=== PATIENT | female | born 1965 | race American Indian/Alaskan Native ===

== ENCOUNTER 2022-05-13 10:15 | Emergency (ER) | payer MEDICAID ==
[~2022-05-13] VITALS: Ht 167.6 cm; Wt 85.0 kg
[~2022-05-13 10:15] MED LIST: ACET160O2 PO; DOCU100C40 PO; FAMO20TA8 PO; HEPA500017 SQ; HYDR-4353 PO; IPRA3AMP9 NEB; NO HOME MEDS; NYST15CR36 TP; SENN-166 PO; WOOL454C TP
[2022-05-13 11:29] LABS: BASOPHILS # (AUTO) 0.1 X10'3 (0-0.2); HEMOGLOBIN 8.9 g/dl (12.0-16.0); MONOCYTES # (AUTO) 0.8 X10'3 (0-0.9)
[2022-05-13 11:31] LABS: BASOPHILS % (AUTO) 0.7 % (0-1); EOSINOPHILS % (AUTO) 0.1 % (0-6); HEMATOCRIT 28.9 % (35.0-45.0); LYMPHOCYTES # (AUTO) 1.2 X10'3 (1.1-4.8); LYMPHOCYTES % (AUTO) 9.3 % (21-51); MEAN CORPUSCULAR HEMOGLOBIN 20.2 PG (27.0-31.0); MEAN CORPUSCULAR HGB CONC 30.9 g/dL (33.0-36.5); MEAN CORPUSCULAR VOLUME 65.3 FL (78-98); MEAN PLATELET VOLUME 6.9 FL (7.4-10.4); MONOCYTES % (AUTO) 5.7 % (2-12); NEUTROPHILS # (AUTO) 11.2 X10'3 (1.8-7.7); NEUTROPHILS % (AUTO) 84.2 % (42-75); PLATELET COUNT 644 X10'3 (140-440); RED BLOOD COUNT 4.42 X10'6 (4.20-5.60); RED CELL DISTRIBUTION WIDTH 18.7 % (11.5-14.5); WHITE BLOOD COUNT 13.4 X10'3 (4.5-11.0)
[2022-05-13] MEDS ORDERED: normal saline 1000ML IV soln IVB ONE (11:50)
[2022-05-13] MEDS ORDERED: IOHEXOL 12MG/ML oral solution 500 ML BOTTLE PO ONE (11:50)
[2022-05-13] MEDS ORDERED: ondansetron/PF 4mg/2ml inj IV ONE (11:50)
[2022-05-13 11:52] LABS: CLARITY,URINE TURBID (Clear); COLOR,URINE RED (Yellow); GLUCOSE, URINE 100 mg/dl (Neg); KETONES,URINE TRACE mg/dl (Neg); LEUKOCYTE ESTERASE ,URINE MODERATE (Neg); NITRITES, URINE POSITIVE (Neg); OCCULT BLOOD,URINE LARGE (Neg); PROTEIN,URINE >=300 mg/dl (Neg)
[2022-05-13 11:53] LABS: ANISOCYTOSIS 2+; ELLIPTOCYTES FEW; MICROCYTOSIS 2+; PLATELET ESTIMATE INCREASED
[2022-05-13 11:54] LABS: UA COLLECTION TYPE NON-SPECIFIED
[2022-05-13 11:55] LABS: BACTERIA,URINE 2+ /HPF (Neg); MUCUS STRANDS FEW /LPF (Neg); RBC,URINE TNTC /HPF (0-2); SQUAMOUS EPITHELIAL CELL,UR NONE SEEN /LPF (FEW); WBC,URINE TNTC /HPF (0-4)
[2022-05-13 11:56] LABS: AMORPHOUS PHOSPHATES 1+
[2022-05-13 11:56] LABS: ALANINE AMINOTRANSFERASE 17 U/L (12-78); ALBUMIN 3.2 G/DL (3.4-5.0); ALBUMIN/GLOBULIN RATIO 0.6 (1.1-1.5); ALKALINE PHOSPHATASE 96 IU/L (46-116); ANION GAP 13 (8-16); ASPARTATE AMINO TRANSFERASE 23 U/L (10-37); BILIRUBIN,TOTAL 0.3 MG/DL (0.1-1.0); BLOOD UREA NITROGEN 26 MG/DL (7-18); BUN/CREATININE RATIO 13.1 (6.6-38.0); CHLORIDE 95 MMOL/L (99-107); CREATININE 1.99 MG/DL (0.40-0.90); GLUCOSE 210 MG/DL (70-104); LIPASE 73 U/L (73-393); POTASSIUM 3.3 MMOL/L (3.5-5.1); SODIUM 136 MMOL/L (135-145); TOTAL CARBON DIOXIDE 28.2 MMOL/L (24-32); TOTAL PROTEIN 8.4 G/DL (6.4-8.2); eGFR 26 ML/MIN
[2022-05-13 12:00] LABS: URINE HCG NEGATIVE (NEG)
[2022-05-13] MEDS ORDERED: CefTRIAXone 2gm/D5W 50ml BAG 50 ML IV ONE (12:05)
--- NOTE | 2022-05-13 13:31 | NUR ---
Called CT about pt finishing the oral contrast.
[2022-05-13] MEDS ORDERED: CEPH250T PO (16:25)
[2022-05-13] MEDS ORDERED: ONDA4TAB12 PO (16:25)
[2022-05-13 16:51] VITALS: BP 124/77
== END 2022-05-13 16:54 | disposition home or self-care (01) ==
LOC: ER 10:16
DX: N39.0 Urinary tract infection, site not specified (principal); R11.2 Nausea with vomiting, unspecified; K43.5 Parastomal hernia without obstruction or gangrene; R10.84 Generalized abdominal pain; Z79.2 Long term (current) use of antibiotics; Z79.899 Other long term (current) drug therapy
CPT/HCPCS: 36415; 74176; 80053; 81001; 81025; 82948; 83690; 85008; 85025; 87088; 93005; 96365; 96366; 96375; 99285; J0696; J2405; J7030

== ENCOUNTER 2022-06-04 05:53 | Inpatient (IN) | payer MEDICAID ==
[2022-05-29 12:27] LABS: BASOPHILS # (AUTO) 0.1 X10'3 (0-0.2); BASOPHILS % (AUTO) 1.1 % (0-1); EOSINOPHILS # (AUTO) 0.1 X10'3 (0-0.9); EOSINOPHILS % (AUTO) 0.9 % (0-6); LYMPHOCYTES # (AUTO) 1.3 X10'3 (1.1-4.8); MEAN CORPUSCULAR HEMOGLOBIN 20.3 PG (27.0-31.0); MEAN CORPUSCULAR HGB CONC 30.4 g/dL (33.0-36.5); MEAN CORPUSCULAR VOLUME 66.7 FL (78-98); MEAN PLATELET VOLUME 7.2 FL (7.4-10.4); MONOCYTES # (AUTO) 0.5 X10'3 (0-0.9); MONOCYTES % (AUTO) 8.5 % (2-12); NEUTROPHILS # (AUTO) 4.4 X10'3 (1.8-7.7); NEUTROPHILS % (AUTO) 68.5 % (42-75); PRE OP HEMATOCRIT 24.7 % (35.0-45.0); RED CELL DISTRIBUTION WIDTH 19.5 % (11.5-14.5)
[2022-05-29 12:29] LABS: PRE OP HEMOGLOBIN 7.5 g/dL (12.0-16.0)
[2022-05-29 12:30] LABS: PRE OP PLATELET COUNT 683 X10'3 (140-440)
[2022-05-29 12:39] LABS: PRE OP PROTIME 10.3 SECONDS (9.0-12.0)
[2022-05-29 12:44] LABS: PLATELET ESTIMATE INCREASED
[2022-05-29 12:45] LABS: ANISOCYTOSIS 2+; ELLIPTOCYTES FEW; HYPOCHROMASIA 1+; MICROCYTOSIS 2+; STOMATOCYTES 1+
[2022-05-29 12:50] LABS: ALBUMIN 3.4 G/DL (3.4-5.0); ALBUMIN/GLOBULIN RATIO 0.8 (1.1-1.5); ALKALINE PHOSPHATASE 78 IU/L (46-116); BLOOD UREA NITROGEN 32 MG/DL (7-18); BUN/CREATININE RATIO 12.7 (6.6-38.0); CALCIUM 10.2 MG/DL (8.5-10.1); CHLORIDE 88 MMOL/L (99-107); CREATININE 2.52 MG/DL (0.40-0.90); PRE OP ALT 29 U/L (30-65); PRE OP ANION GAP 9 (8-16); PRE OP AST 28 U/L (10-37); PRE OP BILIRUB, TOTAL 0.4 MG/DL (0.0-1.0); PRE OP GLUCOSE 155 MG/DL (70-104); PRE OP SODIUM 136 MMOL/L (135-145); TOTAL CARBON DIOXIDE 39.4 MMOL/L (24-32); TOTAL PROTEIN 7.9 G/DL (6.4-8.2); eGFR 20 ML/MIN
[2022-05-29 12:52] LABS: HEMOGLOBIN A1C 6.6 % (4.5-6.2)
[2022-05-29 12:56] LABS: PRE OP POTASSIUM 2.9 MMOL/L (3.4-5.1)
[2022-06-04] VITALS (35 sets, daily range): BP systolic 113–168; BP diastolic 6–78
[~2022-06-04] VITALS: Ht 165.1 cm; Wt 85.0 kg
[~2022-06-04 05:53] MED LIST changes: -ACET160O2 PO; -DOCU100C40 PO; -FAMO20TA8 PO; -HEPA500017 SQ; +HYDR-3964 PO; -HYDR-4353 PO; -IPRA3AMP9 NEB; +LOSA25TA41 PO; +METF-1203 PO; -NO HOME MEDS; -NYST15CR36 TP; +OMEP40CA21 PO; +ROSU10TA28 PO; -SENN-166 PO; -WOOL454C TP; +ceFOXitin 2GM-NS 100mL ADDvant 100 ML IV ONE; +famotidine 20mg tablet PO ONE
[2022-06-04] MEDS: normal saline 500ml IV soln 500 ML IV SCH (06:19)
[2022-06-04 06:40] LABS: ISTAT CREATININE 1.3 mg/dL (0.6-1.1); ISTAT HGB 7.8 g/dl (12.0-16.0); ISTAT IONIZED CALCIUM 1.09 mmol/L (1.03-1.32); ISTAT K 3.4 mmol/L (3.5-5.1); POC BUN/CREATININE RATIO 10.8 (6.6-38.0)
[2022-06-04] MEDS ORDERED: midazolam 1 mg/ML 2ml injection ONE (07:55)
[2022-06-04] MEDS ORDERED: rocuronium 10mg/ml inj IV ONE ×2 (07:57→08:24)
[2022-06-04] MEDS ORDERED: LIDOcaine 2% (20mg/ml) 5ml vial ONE (07:57)
[2022-06-04] MEDS ORDERED: fentaNYL /PF 50mcg/ml 5ml ampule ONE (07:57)
[2022-06-04] MEDS ORDERED: propofol inj 20 ML IV ONE (07:57)
[2022-06-04] MEDS ORDERED: ondansetron/PF 4mg/2ml inj ONE (08:24)
[2022-06-04] MEDS ORDERED: sevoflurane 250ml liquid IH ONE (08:24)
[2022-06-04] MEDS ORDERED: ringers solution, lacted 1,000 ML IV SCH (09:15)
[2022-06-04] MEDS ORDERED: fentaNYL/PF 50MCG/1 ML 2ML syringe IV PRN ×2 (09:15)
[2022-06-04] MEDS ORDERED: ondansetron/PF 4mg/2ml inj IV PRN ×2 (09:15→11:45)
[2022-06-04] MEDS ORDERED: HYDROmorphone/PF 0.2 MG/ML SYRINGE IV PRN ×2 (09:15)
[2022-06-04] MEDS ORDERED: dexamethasone sod phosphate 4mg/ml inj. ONE (11:31)
[2022-06-04] MEDS ORDERED: neostigmine methylsulfate 1 MG/ML 10ml vial ONE (11:31)
[2022-06-04] MEDS ORDERED: acetaminophen 1,000mg/100ml IV 100 ML IV ONE (11:31)
[2022-06-04] MEDS ORDERED: glycopyrrolate 0.2mg/ml inj ONE (11:31)
[2022-06-04] MEDS ORDERED: meperidine/PF 25mg/ml syringe ONE (11:36)
[2022-06-04] MEDS ORDERED: sugammadex 200mg/2ml injection IV ONE (11:39)
[2022-06-04] MEDS ORDERED: naloxone 0.4 mg/ml inj IV PRN (11:45)
--- NOTE | 2022-06-04 11:46 | NUR ---
Received from OR via BED, accompanied by Anesthesiologist DR WHALEY and report given by Anesthesiologist AND US CUSTOMS AND BORDER OFFICER. PT DROWSY, BUT AWAKENS STARTLED AND FLAILS ARMS AND LEGS THEN CLOSES EYES AND RESTS. ISTAT DRAWN AND REVIEWED BY DR WHALEY. ABDOMINAL BINDER COVERING INCISIONS W/GAUZE DRSG'S COVERING CDI, BELINDA TO BULB SUCTION W/SANGUINOUS DRAINAGE IN BULB, BENNETT CATHETER TO GRAVITY DRAINAGE W/HEMATURIA S/S IN DRAINAGE BAG. DR VU IN, RT HERE FOR CLAIRE, REYMUNDO. Addendum: 06/04/22 at 1402 by Jessica Ferraro RN Amended: Links added.
[2022-06-04 12:18] LABS: ABG BASE EXCESS 0.1 mmol/L (-2.0-2.0); ABG OXYGEN SATURATION 92.7 % (94-97); ABG PCO2 (T) 41.8 mmHg (32.0-45.0); ABG PO2 (T) 71.8 mmHg (75.0-100.0); ALLEN'S TEST POSITIVE; FCOHb 0.6 % (0.0-3.9); FMetHb 0.3 % (0.0-1.5); FO2Hb 91.9 % (94-97); TOTAL HEMOGLOBIN 7.5 G/dl (12.0-16.0)
[2022-06-04] MEDS ORDERED: dextrose 50%-water 50ml dispensing syringe IV PRN ×2 (12:50)
[2022-06-04] MEDS ORDERED: insulin Lispro (HumaLOG) vial - multi-dose SQ SCH (12:50)
[2022-06-04] MEDS ORDERED: glucagon, human recombinant 1mg kit SUBCUT PRN (12:50)
[2022-06-04] MEDS ORDERED: DEXTROSE 15 GM of carb/4 tabs (each vial/BOTTLE has 4 tablets) PO PRN ×2 (12:50)
[2022-06-04] MEDS ORDERED: MESSAGE TO PHARMACY PO ONE (12:50)
[2022-06-04] MEDS ORDERED: HYDROcodone/acetaminophen 5mg/325mg tablet PO PRN (13:15)
--- NOTE | 2022-06-04 15:45 | NUR ---
patient c/o pain dilaudid given with good effect. Dressing to abdomen CDI, abdominal binder in place.. Post op vitals initiated . patient appears stable .
--- NOTE | 2022-06-04 15:45 | NUR ---
Patient in room [facility]. I have received report from Jessica SANCHES and had the opportunity to ask questions and assume patient care.
--- NOTE | 2022-06-04 15:46 | NUR ---
Report called to receiving nurse. Transferred via BED, 2 BAGS OF Belongings SENT W/PT TO ROOM 4. RECEIVING RN AT BEDSIDE TO RECEIVE PT, BLL, CALL LIGHT GIVEN TO PT, SIDE RAILS UP X 2. PT REMAINS DROWSY BUT APPROPRIATE, COMFORTABLE. Special Issues communicated to receiving nurse. YES. Addendum: 06/04/22 at 1554 by Jessica Ferraro RN Amended: Links added.
[2022-06-04] MEDS: ceFOXitin inj 1,000 MG in normal saline 100ml IV soln 100 ML IV SCH ×2 (17:21→23:55)
[2022-06-04] MEDS: HYDROmorphone inj. 0.5 MG/0.5 ML DISP.SYRIN IV PRN (17:26)
--- NOTE | 2022-06-04 18:25 | NUR ---
Problems reprioritized. Patient report given, questions answered & plan of care reviewed with Chance SANCHES.
[2022-06-04] MEDS: ringers solution, lacted 1,000 ML IV SCH (20:00)
[2022-06-04] MEDS: insulin glargine (Lantus) pen - multi-dose SQ SCH (21:00)
[2022-06-04] MEDS: atorvastatin 20mg tablet PO SCH (21:11)
[2022-06-04] MEDS: gabapentin 300mg capsule PO SCH (21:11)
[2022-06-05] MEDS: HYDROcodone/acetaminophen 5mg/325mg tablet PO PRN ×2 (00:30→17:08)
[2022-06-05 02:00] VITALS: BP 128/69
[2022-06-05 06:00] VITALS: BP 115/64
[2022-06-05] MEDS: ringers solution, lacted 1,000 ML IV SCH ×2 (06:17→17:05)
--- NOTE | 2022-06-05 06:20 | NUR ---
Problems reprioritized. Patient report given, questions answered & plan of care reviewed with BECKI. Addendum: 06/05/22 at 0621 by Delfino Bonilla RN Amended: Links added.
[2022-06-05] MEDS: normal saline 500ml IV soln 500 ML IV SCH (06:30)
--- NOTE | 2022-06-05 06:36 | NUR ---
Patient in room [facility] 343. I have received report from Viji oliver and had the opportunity to ask questions and assume patient care.
[2022-06-05] MEDS: pantoprazole 40mg Tablet.DR PO SCH (07:39)
[2022-06-05] MEDS: gabapentin 300mg capsule PO SCH ×2 (07:39→20:06)
--- NOTE | 2022-06-05 09:05 | NUR ---
DM Consult: Pt hx T2DM A1C 6.6% per EMR; A1C appropriate at this time. Addendum: 06/05/22 at [address] Amended: Links added.
[2022-06-05 10:00] VITALS: BP 133/76
--- NOTE | 2022-06-05 12:40 | NUR ---
PATIENT UP AMBULATING X300 FT, PASSING GAS.WILL CONTINUE TO MONITOR
[2022-06-05 18:00] VITALS: BP 140/69
[2022-06-05] MEDS: atorvastatin 20mg tablet PO SCH (20:07)
[2022-06-05] MEDS: insulin glargine (Lantus) pen - multi-dose SQ SCH (21:00)
[2022-06-05 22:00] VITALS: BP 113/60
[2022-06-06] VITALS (13 sets, daily range): BP systolic 108–149; BP diastolic 49–70
[2022-06-06] MEDS: HYDROcodone/acetaminophen 5mg/325mg tablet PO PRN ×3 (00:24→19:34)
[2022-06-06] MEDS: ringers solution, lacted 1,000 ML IV SCH ×2 (02:47→11:45)
--- NOTE | 2022-06-06 05:05 | NUR ---
ambulated x1 300ft, barajas removed good output 1900mls. BELINDA 60mls patient appears comfortable
--- NOTE | 2022-06-06 06:33 | NUR ---
Patient in room [facility]. I have received report from Wendy SANCHES and had the opportunity to ask questions and assume patient care.
--- NOTE | 2022-06-06 06:33 | NUR ---
Problems reprioritized. Patient report given, questions answered & plan of care reviewed with tash guzman.
[2022-06-06 06:37] LABS: BASOPHILS % (AUTO) 0.4 % (0-1); EOSINOPHILS % (AUTO) 0.4 % (0-6); LYMPHOCYTES % (AUTO) 13.2 % (21-51); MEAN CORPUSCULAR HGB CONC 30.7 g/dL (33.0-36.5); MEAN CORPUSCULAR VOLUME 68.6 FL (78-98); MONOCYTES # (AUTO) 0.6 X10'3 (0-0.9); MONOCYTES % (AUTO) 7.8 % (2-12); NEUTROPHILS # (AUTO) 6.2 X10'3 (1.8-7.7); NEUTROPHILS % (AUTO) 78.2 % (42-75); PLATELET COUNT 503 X10'3 (140-440); RED BLOOD COUNT 2.84 X10'6 (4.20-5.60); RED CELL DISTRIBUTION WIDTH 19.7 % (11.5-14.5); WHITE BLOOD COUNT 7.9 X10'3 (4.5-11.0)
[2022-06-06 06:54] LABS: HEMATOCRIT 19.5 % (35.0-45.0)
--- NOTE | 2022-06-06 07:01 | NUR ---
Lab called critical lab values of HGB 6 Hematocrit of 19.5 MD Rodriguez of notification, new order to repeat labs at 1400 entered.
[2022-06-06] MEDS: gabapentin 300mg capsule PO SCH ×2 (07:29→19:34)
[2022-06-06] MEDS: pantoprazole 40mg Tablet.DR PO SCH (07:29)
[2022-06-06] MEDS: normal saline 500ml IV soln 500 ML IV SCH (07:29)
[2022-06-06 07:33] LABS: ANISOCYTOSIS 2+; PLATELET ESTIMATE INCREASED
[2022-06-06 07:34] LABS: ELLIPTOCYTES FEW; HYPOCHROMASIA 2+; LARGE PLATELETS FEW; MICROCYTOSIS 2+
[2022-06-06 07:35] LABS: POLYCHROMASIA FEW
--- NOTE | 2022-06-06 10:04 | NUR ---
CAPRICE documentation: I have reviewed and agree with all interventions, assessments performed and documented by LINDSEY VASQUES . Addendum: 06/06/22 at 1012 by Marvel Schmid RN CAPRICE documentation: I have reviewed and agree with all interventions, assessments performed and documented by LINDSEY VASQUES. See assessment for changes in what i did not agree with.
[2022-06-06 14:28] LABS: BASOPHILS % (AUTO) 0.5 % (0-1); EOSINOPHILS # (AUTO) 0.1 X10'3 (0-0.9); LYMPHOCYTES # (AUTO) 0.9 X10'3 (1.1-4.8); MEAN CORPUSCULAR HEMOGLOBIN 20.3 PG (27.0-31.0); MEAN CORPUSCULAR HGB CONC 29.7 g/dL (33.0-36.5); MEAN CORPUSCULAR VOLUME 68.6 FL (78-98); MEAN PLATELET VOLUME 6.7 FL (7.4-10.4); MONOCYTES # (AUTO) 0.5 X10'3 (0-0.9); MONOCYTES % (AUTO) 7.1 % (2-12); NEUTROPHILS % (AUTO) 79.4 % (42-75); PLATELET COUNT 483 X10'3 (140-440); RED BLOOD COUNT 2.84 X10'6 (4.20-5.60); RED CELL DISTRIBUTION WIDTH 19.2 % (11.5-14.5); WHITE BLOOD COUNT 7.6 X10'3 (4.5-11.0)
[2022-06-06 14:33] LABS: HEMATOCRIT 19.5 % (35.0-45.0); HEMOGLOBIN 5.8 g/dl (12.0-16.0)
--- NOTE | 2022-06-06 15:06 | NUR ---
MD notified of critical HGB of 5.8 and Hematocrit of 19.5, will give 2 units of blood per MD
--- NOTE | 2022-06-06 18:26 | NUR ---
Problems reprioritized. Patient report given, questions answered & plan of care reviewed with Claudia SANCHES.
[2022-06-06] MEDS: atorvastatin 20mg tablet PO SCH (19:34)
[2022-06-06] MEDS: insulin glargine (Lantus) pen - multi-dose SQ SCH (21:00)
[2022-06-07 02:00] VITALS: BP 113/41
[2022-06-07] MEDS: ringers solution, lacted 1,000 ML IV SCH ×3 (02:36→13:43)
--- NOTE | 2022-06-07 05:44 | NUR ---
pt has walked the halls twice tonight. tolerating well. no dizziness. no fever. am labs pending
[2022-06-07 06:00] VITALS: BP 123/60
[2022-06-07 06:00] LABS: BASOPHILS % (AUTO) 0.5 % (0-1); EOSINOPHILS # (AUTO) 0.1 X10'3 (0-0.9); EOSINOPHILS % (AUTO) 1.9 % (0-6); LYMPHOCYTES # (AUTO) 0.9 X10'3 (1.1-4.8); LYMPHOCYTES % (AUTO) 11.7 % (21-51); MEAN CORPUSCULAR HEMOGLOBIN 22.5 PG (27.0-31.0); MEAN CORPUSCULAR HGB CONC 30.7 g/dL (33.0-36.5); MEAN CORPUSCULAR VOLUME 73.4 FL (78-98); MEAN PLATELET VOLUME 6.8 FL (7.4-10.4); MONOCYTES # (AUTO) 0.5 X10'3 (0-0.9); MONOCYTES % (AUTO) 6.9 % (2-12); PLATELET COUNT 456 X10'3 (140-440); RED BLOOD COUNT 3.54 X10'6 (4.20-5.60); RED CELL DISTRIBUTION WIDTH 21.5 % (11.5-14.5); WHITE BLOOD COUNT 7.6 X10'3 (4.5-11.0)
[2022-06-07 06:18] LABS: ALANINE AMINOTRANSFERASE 16 U/L (12-78); ALBUMIN 1.9 G/DL (3.4-5.0); ALBUMIN/GLOBULIN RATIO 0.5 (1.1-1.5); ALKALINE PHOSPHATASE 87 IU/L (46-116); ANION GAP 7 (8-16); ASPARTATE AMINO TRANSFERASE 19 U/L (10-37); BILIRUBIN,TOTAL 0.3 MG/DL (0.1-1.0); BLOOD UREA NITROGEN 8 MG/DL (7-18); BUN/CREATININE RATIO 8.8 (6.6-38.0); CALCIUM 8.4 MG/DL (8.5-10.1); CHLORIDE 108 MMOL/L (99-107); CREATININE 0.91 MG/DL (0.40-0.90); GLUCOSE 117 MG/DL (70-104); POTASSIUM 3.8 MMOL/L (3.5-5.1); SODIUM 140 MMOL/L (135-145); TOTAL CARBON DIOXIDE 24.9 MMOL/L (24-32); TOTAL PROTEIN 5.7 G/DL (6.4-8.2); eGFR 64 ML/MIN
--- NOTE | 2022-06-07 07:00 | NUR ---
Patient in room [facility]. I have received report from Claudia SANCHES and had the opportunity to ask questions and assume patient care.
[2022-06-07] MEDS: gabapentin 300mg capsule PO SCH ×2 (08:19→19:33)
[2022-06-07] MEDS: pantoprazole 40mg Tablet.DR PO SCH (08:19)
[2022-06-07] MEDS: HYDROcodone/acetaminophen 5mg/325mg tablet PO PRN ×2 (08:20→17:30)
[2022-06-07] MEDS: normal saline 500ml IV soln 500 ML IV SCH (08:30)
[2022-06-07 11:07] VITALS: BP 164/65
[2022-06-07 18:00] VITALS: BP 141/61
--- NOTE | 2022-06-07 18:21 | NUR ---
Problems reprioritized. Patient report given, questions answered & plan of care reviewed with Zayda VASQUES.
--- NOTE | 2022-06-07 18:35 | NUR ---
Patient in room [facility]. I have received report from Cyndie and had the opportunity to ask questions and assume patient care.
[2022-06-07] MEDS: enoxaparin 40mg/0.4ml syringe SUBCUT SCH (19:33)
[2022-06-07] MEDS: atorvastatin 20mg tablet PO SCH (19:33)
[2022-06-07] MEDS: insulin glargine (Lantus) pen - multi-dose SQ SCH (21:00)
[2022-06-07 22:00] VITALS: BP 148/65
[2022-06-07] MEDS: HYDROmorphone inj. 0.5 MG/0.5 ML DISP.SYRIN IV PRN (22:11)
[2022-06-08] MEDS: ringers solution, lacted 1,000 ML IV SCH (00:27)
--- NOTE | 2022-06-08 06:01 | NUR ---
Problems reprioritized. Patient report given, questions answered & plan of care reviewed with Cyndie.
--- NOTE | 2022-06-08 06:47 | NUR ---
Patient in room [facility]. I have received report from Zayda VASQUES and had the opportunity to ask questions and assume patient care.
--- NOTE | 2022-06-08 06:53 | NUR ---
REVIEWED BUSINESS ACCOUNT SPECIALIST ASSESSMENT AND IN AGREEMENT
[2022-06-08 07:10] VITALS: BP 139/69
[2022-06-08] MEDS: pantoprazole 40mg Tablet.DR PO SCH (07:33)
[2022-06-08] MEDS: gabapentin 300mg capsule PO SCH ×2 (07:33→20:01)
[2022-06-08] MEDS: HYDROcodone/acetaminophen 5mg/325mg tablet PO PRN ×2 (07:34→23:36)
[2022-06-08] MEDS: normal saline 500ml IV soln 500 ML IV SCH (10:25)
[2022-06-08 12:07] VITALS: BP 146/68
[2022-06-08 18:00] VITALS: BP 141/64
--- NOTE | 2022-06-08 18:20 | NUR ---
Patient in room [facility]. I have received report from Cyndie and had the opportunity to ask questions and assume patient care.
[2022-06-08] MEDS: enoxaparin 40mg/0.4ml syringe SUBCUT SCH (20:01)
[2022-06-08] MEDS: atorvastatin 20mg tablet PO SCH (20:02)
[2022-06-08] MEDS: insulin glargine (Lantus) pen - multi-dose SQ SCH (21:00)
--- NOTE | 2022-06-08 21:47 | NUR ---
Verified with patient if she had a bm today, she told me no only gas.
[2022-06-08 22:00] VITALS: BP 131/71
--- NOTE | 2022-06-09 02:15 | NUR ---
Reviewed and agree with POUNCER MACHINE assessment
--- NOTE | 2022-06-09 06:07 | NUR ---
Problems reprioritized. Patient report given, questions answered & plan of care reviewed with Charity.
--- NOTE | 2022-06-09 06:45 | NUR ---
Patient in room [facility]. I have received report from Becky SANCHES and had the opportunity to ask questions and assume patient care.
[2022-06-09 07:00] VITALS: BP 126/60
[2022-06-09] MEDS: gabapentin 300mg capsule PO SCH ×2 (08:12→19:28)
[2022-06-09] MEDS: pantoprazole 40mg Tablet.DR PO SCH (08:12)
[2022-06-09 10:00] VITALS: BP 126/70
[2022-06-09] MEDS: normal saline 500ml IV soln 500 ML IV SCH (10:30)
--- NOTE | 2022-06-09 13:29 | NUR ---
Initial: Pt admit s/p OR for colostomy reversal and parastomal hernia repair per EMR. Hx DM A1C 6.6% advanced to carb controlled diet from initial clear liquids PO ~74% avg meals meeting estimated protein needs and partially meeting kcal needs. JAYSHREE recommends Yogi smoothie BIDBD for wound healing and to assist meeting kcals needs; MD notified. LBM 06/09 per EMR. Will monitor for further nutrition intervention needs this admit. Rec: 1. continue carb controlled diet; if PO regresses liberalize to regular 2. Yogi smoothie BIDBD; pending MD verification in EMR 3. routine bowel care 4. weekly wts Addendum: 06/09/22 at [address] Amended: Links added.
[2022-06-09] MEDS: HYDROcodone/acetaminophen 5mg/325mg tablet PO PRN ×2 (14:37→20:09)
[2022-06-09 18:00] VITALS: BP 140/65
--- NOTE | 2022-06-09 18:00 | NUR ---
Problems reprioritized. Patient report given, questions answered & plan of care reviewed with susanne VASQUES.
--- NOTE | 2022-06-09 18:51 | NUR ---
Patient in room [facility]. I have received report from Charity and had the opportunity to ask questions and assume patient care.
[2022-06-09] MEDS: atorvastatin 20mg tablet PO SCH (19:28)
[2022-06-09] MEDS: enoxaparin 40mg/0.4ml syringe SUBCUT SCH (19:28)
--- NOTE | 2022-06-09 19:30 | NUR ---
Dr. Rodriguez rounded on pt. I was instructed to order MOM BID and BELINDA will come out in the AM as well as pt being discharged 06/10
[2022-06-09] MEDS: magnesium hydroxide 30ml (MOM) UD suspension PO SCH (19:42)
[2022-06-09] MEDS: insulin glargine (Lantus) pen - multi-dose SQ SCH (21:00)
[2022-06-09 22:00] VITALS: BP 115/43
[2022-06-10 06:00] VITALS: BP 128/63
--- NOTE | 2022-06-10 06:12 | NUR ---
Problems reprioritized. Patient report given, questions answered & plan of care reviewed with Bre.
--- NOTE | 2022-06-10 06:54 | NUR ---
Patient in room [facility] 343B. I have received report from CAPRICE ABDULLAHI and had the opportunity to ask questions and assume patient care.
[2022-06-10] MEDS: magnesium hydroxide 30ml (MOM) UD suspension PO SCH (08:00)
[2022-06-10] MEDS: gabapentin 300mg capsule PO SCH (09:19)
[2022-06-10] MEDS: pantoprazole 40mg Tablet.DR PO SCH (09:19)
[2022-06-10 10:00] VITALS: BP 110/59
--- NOTE | 2022-06-10 11:19 | NUR ---
assisting RN with pt care, BELINDA drain removed without complications, 60ml of pink tinged fluid in BELINDA drain, applied 4x4 and foam tape
--- NOTE | 2022-06-10 12:00 | NUR ---
PATIENT STABLE AND APPROPRIATE FOR TRANSFER, IV TAKEN OUT, ALL BELONGINGS SENT WITH PATIENT, EDUCATION GIVEN, PATIENT TAKEN TO LOBBY BY WHEELCHAIR TO AN AWAITING CAR WHERE DAUGHTER WILL TAKE PATIENT HOME
[2022-06-11 07:18] LABS: ISTAT CREATININE 1.2 mg/dL (0.6-1.1); ISTAT K 3.8 mmol/L (3.5-5.1)
[2022-06-11 07:19] LABS: ISTAT HGB 7.1 g/dl (12.0-16.0); ISTAT IONIZED CALCIUM 1.07 mmol/L (1.03-1.32); POC BUN/CREATININE RATIO 10.8 (6.6-38.0)
== END 2022-06-10 12:00 | disposition home or self-care (01) | DRG 231 ==
LOC: UNDOADMIN 05:53 → PAS IN 05:53 → SUR 3N 15:43
PROVIDERS: ADMIT Surgery; ATTEND Surgery
PROC: 0DNW0ZZ Release Peritoneum, Open Approach (ICD-10-PCS; 2022-06-04)
PROC: 0WQF0ZZ Repair Abdominal Wall, Open Approach (ICD-10-PCS; 2022-06-04)
PROC: 0DBL0ZZ Excision of Transverse Colon, Open Approach (ICD-10-PCS; principal; 2022-06-04 08:24)
PROC: 30233N1 Transfusion of Nonautologous Red Blood Cells into Peripheral Vein, Percutaneous Approach (ICD-10-PCS; 2022-06-06)
DX: Z43.3 Encounter for attention to colostomy (principal); E11.9 Type 2 diabetes mellitus without complications; K43.5 Parastomal hernia without obstruction or gangrene; K66.0 Peritoneal adhesions (postprocedural) (postinfection); I10 Essential (primary) hypertension
CPT/HCPCS: 36415; 36430; 36600; 71046; 80047; 80053; 82803; 82948; 83036; 85008; 85018; 85025; 85610; 85730; 86870; 86885; 86900; 86901; 86902; 86905; 86920; 86922; 87081; 93005; A4615; A4618; A6402; A6449; A7000; C1758; G0378; J0131; J0694; J1100; J1170; J1650; J1815; J2175; J2250; J2405; J2704; J2710; J3010; J3490; J7030; J7040; J7050; J7120; P9016

== ENCOUNTER 2022-06-26 08:13 | Day surgery (SDC) | payer MEDICAID ==
[~2022-06-26] VITALS: Ht 165.1 cm; Wt 85.7 kg
[~2022-06-26 08:13] MED LIST changes: -ceFOXitin 2GM-NS 100mL ADDvant 100 ML IV ONE; -famotidine 20mg tablet PO ONE
[2022-06-26 08:38] VITALS: BP 122/68
[2022-06-26 08:40] VITALS: BP 122/68
[2022-06-26] MEDS ORDERED: LIDOcaine 1% 30ml preserv. free vial SQ STA (08:53)
[2022-06-26 09:51] VITALS: BP 117/67
[2022-06-26 10:00] VITALS: BP 133/66
== END 2022-06-26 10:12 | disposition home or self-care (01) ==
LOC: SSTAY O 08:13
PROVIDERS: ATTEND Radiology Vascular & Interventional Radiology
DX: K91.872 Postprocedural seroma of a digestive system organ or structure following a digestive system procedure (principal); Z88.6 Allergy status to analgesic agent; Z88.8 Allergy status to other drugs, medicaments and biological substances; Z79.899 Other long term (current) drug therapy
CPT/HCPCS: 10030; 10160; 76942; 87070; 87075; 87102; A6449

== ENCOUNTER 2023-04-26 16:59 | Inpatient (IN) | payer MEDICAID ==
[~2023-04-26] VITALS: Ht 165.1 cm; Wt 73.2 kg
[~2023-04-26 16:59] MED LIST changes: -HYDR-3964 PO; +IRON150C5 PO; -LOSA25TA41 PO; -METF-1203 PO; +SERT-433 PO
[2023-04-26 17:21] LABS: CLARITY,URINE TURBID (Clear); COLOR,URINE BROWN (Yellow)
[2023-04-26 17:30] LABS: UA COLLECTION TYPE CLN CATCH MIDSTREAM
[2023-04-26 17:32] LABS: RBC,URINE TNTC /HPF (0-2); WBC,URINE 20-30 /HPF (0-4)
[2023-04-26 17:33] LABS: BACTERIA,URINE 3+ /HPF (Neg); MUCUS STRANDS FEW /LPF (Neg); SQUAMOUS EPITHELIAL CELL,UR FEW /LPF (FEW); WBC CLUMPS,URINE FEW /HPF (NEGATIVE)
[2023-04-26 17:37] LABS: URINE HCG POSITIVE (NEG)
[2023-04-26 20:18] LABS: BASOPHILS # (AUTO) 0.1 X10'3 (0-0.2); EOSINOPHILS # (AUTO) 0.1 X10'3 (0-0.9); EOSINOPHILS % (AUTO) 1.6 % (0-6); LYMPHOCYTES # (AUTO) 0.9 X10'3 (1.1-4.8); MONOCYTES # (AUTO) 0.6 X10'3 (0-0.9); WHITE BLOOD COUNT 7.2 X10'3 (4.5-11.0)
[2023-04-26 20:19] LABS: BASOPHILS % (AUTO) 1.3 % (0-1); LYMPHOCYTES % (AUTO) 12.5 % (21-51); MEAN CORPUSCULAR HEMOGLOBIN 21.5 PG (27.0-31.0); MEAN CORPUSCULAR VOLUME 71.8 FL (78-98); MEAN PLATELET VOLUME 6.5 FL (7.4-10.4); MONOCYTES % (AUTO) 7.9 % (2-12); NEUTROPHILS # (AUTO) 5.5 X10'3 (1.8-7.7); NEUTROPHILS % (AUTO) 76.7 % (42-75); PLATELET COUNT 622 X10'3 (140-440); RED BLOOD COUNT 2.93 X10'6 (4.20-5.60); RED CELL DISTRIBUTION WIDTH 27.4 % (11.5-14.5)
[2023-04-26 20:28] LABS: HEMOGLOBIN 6.3 g/dl (12.0-16.0)
[2023-04-26] MEDS ORDERED: CefTRIAXone 2gm/D5W 50ml BAG 50 ML IV STA (20:35)
[2023-04-26 20:53] LABS: ALANINE AMINOTRANSFERASE 16 U/L (12-78); ALBUMIN 2.4 G/DL (3.4-5.0); ALBUMIN/GLOBULIN RATIO 0.5 (1.1-1.5); ALKALINE PHOSPHATASE 90 IU/L (46-116); ANION GAP 4 (8-16); ASPARTATE AMINO TRANSFERASE 20 U/L (10-37); BILIRUBIN,TOTAL 0.3 MG/DL (0.1-1.0); BLOOD UREA NITROGEN 19 MG/DL (7-18); BUN/CREATININE RATIO 13.5 (10.0-20.0); CALCIUM 9.1 MG/DL (8.5-10.1); CHLORIDE 106 MMOL/L (99-107); CREATININE 1.41 MG/DL (0.40-0.90); GLUCOSE 104 MG/DL (70-104); POTASSIUM 4.4 MMOL/L (3.5-5.1); SODIUM 134 MMOL/L (135-145); TOTAL CARBON DIOXIDE 23.9 MMOL/L (24-32); TOTAL PROTEIN 7.1 G/DL (6.4-8.2); eCRCL 40 ML/MIN; eGFR 39 ML/MIN
[2023-04-26 21:00] LABS: BETA HCG,QUANTITATIVE < 1.0 mIU/ml
[2023-04-26] MEDS ORDERED: temazepam 15mg capsule PO PRN (21:00)
[2023-04-26 21:04] LABS: LIPASE 21 U/L (16-77)
[2023-04-26] MEDS ORDERED: METF-436 PO (21:21)
[2023-04-26 21:40] LABS: APTT 20 SECONDS (22-32); PROTHROMBIN TIME 10.3 SECONDS (9.0-12.0)
[2023-04-26] MEDS ORDERED: ondansetron/PF 4mg/2ml inj IV PRN (21:50)
[2023-04-26] MEDS ORDERED: potassium Cl 20 mEq SR tablet PO PRN ×2 (21:50)
[2023-04-26] MEDS ORDERED: magnesium Cl slow-release 64mg tablet PO PRN (21:50)
[2023-04-26] MEDS ORDERED: potassium Cl 40MEQ/1/2NS 520ml 520 ML IV PRN (21:50)
[2023-04-26] MEDS ORDERED: magnesium 2GM in 50ml NS 50 ML IV PRN (21:50)
[2023-04-26] MEDS ORDERED: acetaminophen 325mg tablet PO PRN (21:50)
[2023-04-26] MEDS ORDERED: magnesium 4gm in 100ml NS 100 ML IV PRN (21:50)
[2023-04-26] MEDS: normal saline 1000ml 1,000 ML IV SCH (22:03)
--- NOTE | 2023-04-26 22:19 | NUR ---
HOSPITALIST AT BEDSIDE. PATIENT DENIES NEEDS AT THIS TIME. NO ACUTE DISTRESS NOTED. CALL LIGHT WITHIN REACH.
--- NOTE | 2023-04-26 22:25 | NUR ---
PATIENT AMBULATORY TO AND FROM RESTROOM INDEPENDENTLY. PATIENT PROVIDED HOSPITAL BED FOR COMFORT. DENIES FURTHER NEEDS AT THIS TIME, CALL LIGHT WITHIN REACH.
[2023-04-26] MEDS: acetaminophen 325mg tablet PO SCH (23:05)
[2023-04-26 23:32] LABS: ANISOCYTOSIS 3+; MICROCYTOSIS 1+
[2023-04-26 23:33] LABS: PLATELET ESTIMATE INCREASED
[2023-04-27 02:51] VITALS: BP 160/71; PULSE 75; RESP 26; TEMP 98.7
[2023-04-27] MEDS ORDERED: diphenhydrAMINE 50 mg/ml inj IM ONE (03:05)
--- NOTE | 2023-04-27 03:08 | NUR ---
First unit of PRBC transfused. Pt states she has a spot that itches on her left upper thigh, near her groin. Pt denies SOB, CP, N/V. No other sites of rash noted. Hospitalist paged twice. New orders from ER for Benadryl 50 mg, IV, and to continue with next unit of blood.
[2023-04-27 03:26] VITALS: BP 136/53; PULSE 69; RESP 20; TEMP 98.7
--- NOTE | 2023-04-27 03:45 | NUR ---
Pt continues to transfuse second unit of blood with no complaints of itching, SOB, CP, N/V. Pt resting comfortably
[2023-04-27 04:26] VITALS: BP 161/81; PULSE 72; RESP 23; TEMP 98.2
--- NOTE | 2023-04-27 06:03 | NUR ---
PATIENT TOLERATED SECOND UNIT OF PRBCS. NO SIGNS OF REACTION, TOLERATED WELL. PATIENT RESTING, RESPIRATIONS EVEN AND UNLABORED, NO ACUTE DISTRESS NOTED AT THIS TIME, CALL LIGHT WITHIN REACH.
[2023-04-27] MEDS: sertraline 50mg tablet PO SCH (07:41)
[2023-04-27] MEDS: acetaminophen 325mg tablet PO SCH ×2 (07:41→16:00)
[2023-04-27] MEDS: pantoprazole 40mg Tablet.DR PO SCH (07:42)
[2023-04-27] MEDS: nicotine 14mg patch - 24hr TD SCH (07:43)
[2023-04-27 08:29] LABS: BASOPHILS # (AUTO) 0.1 X10'3 (0-0.2); EOSINOPHILS # (AUTO) 0.2 X10'3 (0-0.9); EOSINOPHILS % (AUTO) 2.2 % (0-6); HEMATOCRIT 25.1 % (35.0-45.0); LYMPHOCYTES # (AUTO) 0.7 X10'3 (1.1-4.8); LYMPHOCYTES % (AUTO) 8.9 % (21-51); MEAN CORPUSCULAR HEMOGLOBIN 23.2 PG (27.0-31.0); MEAN CORPUSCULAR HGB CONC 31.7 g/dL (33.0-36.5); MEAN CORPUSCULAR VOLUME 73.2 FL (78-98); MEAN PLATELET VOLUME 6.6 FL (7.4-10.4); MONOCYTES # (AUTO) 0.8 X10'3 (0-0.9); MONOCYTES % (AUTO) 9.6 % (2-12); NEUTROPHILS # (AUTO) 6.2 X10'3 (1.8-7.7); NEUTROPHILS % (AUTO) 78.3 % (42-75); PLATELET COUNT 492 X10'3 (140-440); RED BLOOD COUNT 3.43 X10'6 (4.20-5.60); RED CELL DISTRIBUTION WIDTH 24.1 % (11.5-14.5); WHITE BLOOD COUNT 7.9 X10'3 (4.5-11.0)
[2023-04-27 08:48] LABS: ALANINE AMINOTRANSFERASE 17 U/L (12-78); ALBUMIN 2.2 G/DL (3.4-5.0); ALBUMIN/GLOBULIN RATIO 0.5 (1.1-1.5); ALKALINE PHOSPHATASE 85 IU/L (46-116); ANION GAP 7 (8-16); ASPARTATE AMINO TRANSFERASE 17 U/L (10-37); BILIRUBIN,TOTAL 0.4 MG/DL (0.1-1.0); BLOOD UREA NITROGEN 18 MG/DL (7-18); CALCIUM 8.6 MG/DL (8.5-10.1); CHLORIDE 106 MMOL/L (99-107); GLUCOSE 101 MG/DL (70-104); POTASSIUM 4.1 MMOL/L (3.5-5.1); SODIUM 137 MMOL/L (135-145); TOTAL CARBON DIOXIDE 23.6 MMOL/L (24-32); TOTAL PROTEIN 6.4 G/DL (6.4-8.2); eCRCL 38 ML/MIN; eGFR 36 ML/MIN
[2023-04-27 09:25] LABS: ANISOCYTOSIS 3+; MICROCYTOSIS 1+; PLATELET ESTIMATE INCREASED; POIKILOCYTOSIS FEW
[2023-04-27 09:26] LABS: POLYCHROMASIA FEW
[2023-04-27] MEDS: normal saline 1000ml 1,000 ML IV SCH (11:10)
--- NOTE | 2023-04-27 13:20 | NUR ---
Received patient report from Graciela, and received patient into room. patient appears stable. Will continue to monitor
[2023-04-27 15:27] LABS: BASOPHILS # (AUTO) 0.1 X10'3 (0-0.2); BASOPHILS % (AUTO) 0.7 % (0-1); EOSINOPHILS # (AUTO) 0.2 X10'3 (0-0.9); EOSINOPHILS % (AUTO) 2.5 % (0-6); HEMATOCRIT 25.6 % (35.0-45.0); HEMOGLOBIN 8.2 g/dl (12.0-16.0); LYMPHOCYTES # (AUTO) 0.8 X10'3 (1.1-4.8); LYMPHOCYTES % (AUTO) 11.1 % (21-51); MEAN CORPUSCULAR HEMOGLOBIN 23.5 PG (27.0-31.0); MEAN CORPUSCULAR VOLUME 73.3 FL (78-98); MEAN PLATELET VOLUME 6.5 FL (7.4-10.4); MONOCYTES # (AUTO) 0.7 X10'3 (0-0.9); MONOCYTES % (AUTO) 9.2 % (2-12); NEUTROPHILS # (AUTO) 5.5 X10'3 (1.8-7.7); NEUTROPHILS % (AUTO) 76.5 % (42-75); PLATELET COUNT 481 X10'3 (140-440); RED CELL DISTRIBUTION WIDTH 24.2 % (11.5-14.5); WHITE BLOOD COUNT 7.2 X10'3 (4.5-11.0)
[2023-04-27 16:14] VITALS: BP 175/69; PULSE 70; RESP 11; TEMP 98.4; O2SAT 96
[2023-04-27 19:00] VITALS: BP 159/60; PULSE 83; RESP 16; TEMP 98; O2SAT 97
[2023-04-27] MEDS: HYDROcodone/acetaminophen 5mg/325mg tablet PO PRN (19:11)
[2023-04-27] MEDS: CefTRIAXone 2gm/D5W 50ml BAG 50 ML IV SCH (19:14)
[2023-04-27 22:00] VITALS: BP 166/67; PULSE 60; RESP 16; TEMP 98.5; O2SAT 96
[2023-04-28] MEDS: ROSUVASTATIN CALCIUM 5 MG TABLET PO SCH ×2 (00:44→19:58)
[2023-04-28] MEDS: HYDROcodone/acetaminophen 5mg/325mg tablet PO PRN ×3 (00:48→21:58)
[2023-04-28] MEDS: normal saline 1000ml 1,000 ML IV SCH ×2 (00:48→14:59)
[2023-04-28 05:18] LABS: BASOPHILS # (AUTO) 0.1 X10'3 (0-0.2); BASOPHILS % (AUTO) 1.1 % (0-1); EOSINOPHILS # (AUTO) 0.3 X10'3 (0-0.9); EOSINOPHILS % (AUTO) 4.1 % (0-6); HEMATOCRIT 28.3 % (35.0-45.0); HEMOGLOBIN 8.9 g/dl (12.0-16.0); LYMPHOCYTES % (AUTO) 12.6 % (21-51); MEAN CORPUSCULAR HEMOGLOBIN 23.4 PG (27.0-31.0); MEAN CORPUSCULAR HGB CONC 31.5 g/dL (33.0-36.5); MEAN CORPUSCULAR VOLUME 74.4 FL (78-98); MEAN PLATELET VOLUME 6.7 FL (7.4-10.4); MONOCYTES # (AUTO) 0.7 X10'3 (0-0.9); MONOCYTES % (AUTO) 8.4 % (2-12); NEUTROPHILS # (AUTO) 5.8 X10'3 (1.8-7.7); NEUTROPHILS % (AUTO) 73.8 % (42-75); PLATELET COUNT 542 X10'3 (140-440); RED BLOOD COUNT 3.81 X10'6 (4.20-5.60); RED CELL DISTRIBUTION WIDTH 24.1 % (11.5-14.5); WHITE BLOOD COUNT 7.8 X10'3 (4.5-11.0)
[2023-04-28 05:28] LABS: ALANINE AMINOTRANSFERASE 19 U/L (12-78); ALBUMIN 2.3 G/DL (3.4-5.0); ALBUMIN/GLOBULIN RATIO 0.5 (1.1-1.5); ALKALINE PHOSPHATASE 91 IU/L (46-116); ANION GAP 9 (8-16); ASPARTATE AMINO TRANSFERASE 19 U/L (10-37); BILIRUBIN,TOTAL 0.2 MG/DL (0.1-1.0); BLOOD UREA NITROGEN 13 MG/DL (7-18); BUN/CREATININE RATIO 8.7 (10.0-20.0); CHLORIDE 106 MMOL/L (99-107); CREATININE 1.49 MG/DL (0.40-0.90); GLUCOSE 88 MG/DL (70-104); SODIUM 138 MMOL/L (135-145); TOTAL CARBON DIOXIDE 23.4 MMOL/L (24-32); eCRCL 38 ML/MIN; eGFR 36 ML/MIN
--- NOTE | 2023-04-28 05:54 | NUR ---
X- ray person called and said pt. will not be able to have cystoscopy today because there is no radiology person on Saturday.She will be reschedule for Saturday.
[2023-04-28 06:00] VITALS: BP 166/63; PULSE 73; RESP 18; TEMP 97.7; O2SAT 99
--- NOTE | 2023-04-28 06:15 | NUR ---
Patient in room [facility] 4020. I have received report from Wendy and had the opportunity to ask questions and assume patient care.
--- NOTE | 2023-04-28 06:33 | NUR ---
report given to Randa SANCHES
[2023-04-28 07:49] LABS: PLATELET ESTIMATE INCREASED
[2023-04-28 07:50] LABS: ANISOCYTOSIS 3+; BURR CELLS 1+; ELLIPTOCYTES 1+; HYPOCHROMASIA 1+; MICROCYTOSIS 1+; POLYCHROMASIA 1+
[2023-04-28 07:54] VITALS: RESP 18; O2SAT 99
[2023-04-28] MEDS: acetaminophen 325mg tablet PO SCH ×3 (07:54→16:00)
[2023-04-28] MEDS: pantoprazole 40mg Tablet.DR PO SCH (07:54)
[2023-04-28] MEDS: nicotine 14mg patch - 24hr TD SCH (07:54)
[2023-04-28] MEDS: sertraline 50mg tablet PO SCH (07:55)
[2023-04-28] MEDS ORDERED: iron polysaccharide complex 150mg capsule PO SCH (08:00)
[2023-04-28] MEDS ORDERED: DEXTROSE 15 GM of carb/4 tabs (each vial/BOTTLE has 4 tablets) PO PRN ×2 (10:05)
[2023-04-28] MEDS ORDERED: glucagon, human recombinant 1mg kit SUBCUT PRN (10:05)
[2023-04-28] MEDS ORDERED: insulin Lispro (HumaLOG) vial - multi-dose SQ SCH (10:05)
[2023-04-28] MEDS ORDERED: MESSAGE TO PHARMACY PO ONE (10:05)
[2023-04-28] MEDS ORDERED: dextrose 50%-water 50ml dispensing syringe IV PRN ×2 (10:05)
[2023-04-28 10:08] VITALS: BP 168/70; PULSE 71; RESP 15; TEMP 98.1; O2SAT 98
[2023-04-28 13:59] LABS: HCG SERUM QL NEGATIVE
[2023-04-28 14:11] LABS: BETA HCG,QUANTITATIVE < 1.0 mIU/ml
[2023-04-28 14:54] LABS: URINE AMPHETAMINE SCREEN NEGATIVE (Neg); URINE BARBITUATE SCREEN NEGATIVE (Neg); URINE BENZODIAZEPINES SCREEN NEGATIVE (Neg); URINE CANNABINOID SCREEN POSITIVE (Neg); URINE COCAINE SCREEN NEGATIVE (Neg); URINE METHADONE SCREEN NEGATIVE (Neg); URINE OPIATE SCREEN POSITIVE (Neg); URINE PHENCYCLIDINE SCREEN NEGATIVE (Neg)
[2023-04-28 15:36] LABS: URINE HCG POSITIVE (NEG)
[2023-04-28 18:00] VITALS: BP 149/74; PULSE 68; RESP 14; TEMP 98.4; O2SAT 99
--- NOTE | 2023-04-28 18:26 | NUR ---
Problems reprioritized. Patient report given, questions answered & plan of care reviewed with Chanell Muniz
[2023-04-28] MEDS: CefTRIAXone 2gm/D5W 50ml BAG 50 ML IV SCH (19:58)
[2023-04-28 20:00] VITALS: RESP 15; O2SAT 98
[2023-04-28] MEDS ORDERED: insulin glargine (Lantus) pen - multi-dose SQ SCH (21:00)
[2023-04-28 22:00] VITALS: BP 114/72; PULSE 63; RESP 15; TEMP 98.7; O2SAT 98
[2023-04-29] MEDS: normal saline 1000ml 1,000 ML IV SCH (05:04)
[2023-04-29 06:00] VITALS: BP 157/68; PULSE 72; RESP 16; TEMP 97.6; O2SAT 97
[2023-04-29 06:03] LABS: BASOPHILS # (AUTO) 0.1 X10'3 (0-0.2); BASOPHILS % (AUTO) 1.3 % (0-1); EOSINOPHILS # (AUTO) 0.3 X10'3 (0-0.9); EOSINOPHILS % (AUTO) 4.2 % (0-6); HEMATOCRIT 27.6 % (35.0-45.0); HEMOGLOBIN 8.5 g/dl (12.0-16.0); LYMPHOCYTES # (AUTO) 0.8 X10'3 (1.1-4.8); LYMPHOCYTES % (AUTO) 10.9 % (21-51); MEAN CORPUSCULAR HEMOGLOBIN 22.9 PG (27.0-31.0); MEAN CORPUSCULAR VOLUME 74.1 FL (78-98); MEAN PLATELET VOLUME 6.7 FL (7.4-10.4); MONOCYTES # (AUTO) 0.7 X10'3 (0-0.9); MONOCYTES % (AUTO) 9.8 % (2-12); NEUTROPHILS # (AUTO) 5.6 X10'3 (1.8-7.7); NEUTROPHILS % (AUTO) 73.8 % (42-75); PLATELET COUNT 533 X10'3 (140-440); RED BLOOD COUNT 3.73 X10'6 (4.20-5.60); RED CELL DISTRIBUTION WIDTH 24.3 % (11.5-14.5); WHITE BLOOD COUNT 7.6 X10'3 (4.5-11.0)
[2023-04-29 06:13] LABS: % IRON SATURATION 9 % (11-46); IRON 41 UG/DL (49-151); TOTAL IRON BINDING CAPACITY 468 UG/DL (259-388)
--- NOTE | 2023-04-29 06:20 | NUR ---
Patient in room [facility] 4020. I have received report from Chanell and had the opportunity to ask questions and assume patient care.
--- NOTE | 2023-04-29 06:27 | NUR ---
Problems reprioritized. Patient report given, questions answered & plan of care reviewed with MYRON Tolentino.
[2023-04-29] MEDS: nicotine 14mg patch - 24hr TD SCH (07:13)
[2023-04-29] MEDS: acetaminophen 325mg tablet PO SCH ×2 (07:14)
[2023-04-29 07:29] LABS: ALANINE AMINOTRANSFERASE 16 U/L (12-78); ALBUMIN 2.2 G/DL (3.4-5.0); ALBUMIN/GLOBULIN RATIO 0.5 (1.1-1.5); ALKALINE PHOSPHATASE 84 IU/L (46-116); ANION GAP 8 (8-16); ASPARTATE AMINO TRANSFERASE 12 U/L (10-37); BILIRUBIN,TOTAL 0.2 MG/DL (0.1-1.0); BLOOD UREA NITROGEN 14 MG/DL (7-18); BUN/CREATININE RATIO 9.3 (10.0-20.0); CALCIUM 8.9 MG/DL (8.5-10.1); CHLORIDE 108 MMOL/L (99-107); GLUCOSE 99 MG/DL (70-104); POTASSIUM 4.2 MMOL/L (3.5-5.1); SODIUM 138 MMOL/L (135-145); TOTAL CARBON DIOXIDE 21.7 MMOL/L (24-32); TOTAL PROTEIN 6.6 G/DL (6.4-8.2); eCRCL 38 ML/MIN; eGFR 36 ML/MIN
[2023-04-29 07:32] LABS: FERRITIN 24 NG/ML (8-252)
[2023-04-29] MEDS: sertraline 50mg tablet PO SCH (07:59)
[2023-04-29] MEDS: pantoprazole 40mg Tablet.DR PO SCH (07:59)
[2023-04-29 08:18] VITALS: RESP 16; O2SAT 97
[2023-04-29 08:19] VITALS: RESP 16; O2SAT 98
--- NOTE | 2023-04-29 08:55 | NUR ---
Student documentation:DIEGO I have reviewed and agree with all interventions, assessments performed and medication administration per hospital policy as documented by DIEGO from [facility].
[2023-04-29] MEDS: HYDROcodone/acetaminophen 5mg/325mg tablet PO PRN (09:47)
[2023-04-29 10:23] VITALS: BP 175/75; PULSE 72; RESP 14; TEMP 98.4; O2SAT 100
[2023-04-29] MEDS ORDERED: CefTRIAXone/D5W-Rocephin 1gm 50 ML IV ONE (11:35)
[2023-04-29] MEDS ORDERED: CEFD300C3 PO (13:09)
[2023-04-29] MEDS ORDERED: LACT1CAP26 PO (13:09)
--- NOTE | 2023-04-29 15:05 | NUR ---
Pt D/C per hospitalist. PIV removed, cannula intact. All belongings taken home by patient. Reviewed discharge paperwork with patient, all questions and concerns addressed. Pt was wheeled down to lobby by medical staff director and taken home by friend. Addendum: 04/29/23 at 1611 by Carmencita Mahoney RN RX e-scribed to patient's pharmacy.
== END 2023-04-29 15:05 | disposition home or self-care (01) | DRG 663 ==
LOC: ER 17:00 → ED HOLD 21:53 → ORTHO 4S 04-27 11:56
PROVIDERS: ADMIT Internal Medicine; ATTEND Family Medicine
PROC: 30233N1 Transfusion of Nonautologous Red Blood Cells into Peripheral Vein, Percutaneous Approach (ICD-10-PCS; principal; 2023-04-27)
DX: D64.9 Anemia, unspecified (principal); N13.6 Pyonephrosis; E78.5 Hyperlipidemia, unspecified; N32.9 Bladder disorder, unspecified; R31.9 Hematuria, unspecified; Z88.5 Allergy status to narcotic agent; Z79.899 Other long term (current) drug therapy; Z88.8 Allergy status to other drugs, medicaments and biological substances; Z87.891 Personal history of nicotine dependence
CPT/HCPCS: 36415; 36430; 80053; 80305; 81001; 81025; 82728; 82948; 83540; 83550; 83690; 84466; 84702; 84703; 85008; 85025; 85610; 85730; 86870; 86880; 86885; 86900; 86901; 86920; 86922; 87077; 87088; 87186; 99285; C1758; G0378; J0696; J1200; J1815; J7030; J7040; P9016

== ENCOUNTER 2023-05-03 16:26 | Emergency (ER) | payer MEDICAID ==
[~2023-05-03] VITALS: Ht 165.1 cm; Wt 75.2 kg
[~2023-05-03 16:26] MED LIST changes: +LACT1CAP26 PO
[2023-05-03 22:34] VITALS: BP 136/61; PULSE 73; RESP 16; TEMP 98.6; O2SAT 99
[2023-05-03] MEDS ORDERED: FURO-149 PO (22:35)
[2023-05-03] MEDS ORDERED: furosemide 20MG tablet PO ONE (22:35)
== END 2023-05-03 23:14 | disposition home or self-care (01) ==
LOC: ER 16:27
DX: R60.0 Localized edema (principal); Z88.8 Allergy status to other drugs, medicaments and biological substances; Z88.5 Allergy status to narcotic agent; Z79.899 Other long term (current) drug therapy
CPT/HCPCS: 99283